=== PATIENT | female | born 1995 | race Two or more races ===

== ENCOUNTER 2017-03-08 20:30 | Emergency (ER) | payer OTHER ==
[~2017-03-08] VITALS: Ht 157.5 cm; Wt 81.2 kg
[~2017-03-08 20:30] MED LIST: NAPROXEN500 MG PO
[2017-03-08] MEDS ORDERED: AMOXICILLIN500 M1 PO (21:51)
[2017-03-08] MEDS ORDERED: PERIDEX1 ML MM (21:51)
[2017-03-08 21:58] VITALS: BP 152/100
== END 2017-03-08 21:59 | disposition home or self-care (01) ==
LOC: EXP 20:30 → EME 20:30 → EXP 21:59
DX: K05.10 Chronic gingivitis, plaque induced (principal); K08.89 Other specified disorders of teeth and supporting structures
CPT/HCPCS: 99281; 99283

== ENCOUNTER 2017-03-16 19:34 | Emergency (ER) | payer OTHER ==
[~2017-03-16] VITALS: Ht 157.5 cm; Wt 81.0 kg
[~2017-03-16 19:34] MED LIST changes: +AMOXICILLIN500 M1 PO; +PERIDEX1 ML MM
[2017-03-16] MEDS ORDERED: MOTRIN800 MG PO (20:59)
[2017-03-16] MEDS ORDERED: AUGMENTIN875 MG PO (20:59)
[2017-03-16] MEDS ORDERED: LIDOCAINE20 MG/1 M5 PO (20:59)
[2017-03-16 21:57] VITALS: BP 138/86
== END 2017-03-16 21:58 | disposition home or self-care (01) ==
LOC: EME 19:34
DX: K08.89 Other specified disorders of teeth and supporting structures (principal); K12.2 Cellulitis and abscess of mouth; S00.512A Abrasion of oral cavity, initial encounter; X58.XXXA Exposure to other specified factors, initial encounter
CPT/HCPCS: 99281; 99284